=== PATIENT | male | born 1965 | race Caucasian/White ===

== ENCOUNTER 2022-06-03 21:01 | Emergency (ER) | payer BC, SELFPAY ==
[2022-06-03 21:11] VITALS: BP 120/80; PULSE 82; RESP 18; TEMP 36.7; O2SAT 95; BMI 30.2
--- NOTE | 2022-06-03 21:17 | XRR_ITS ---
PROCEDURE INFORMATION: Exam: XR Left Humerus Exam date and time: 06/03/2022 9:43 PM Age: 56 years old Clinical indication: Injury or trauma; Other: Hit by cleets; Blunt trauma (contusions or hematomas); Arm, upper; Left TECHNIQUE: Imaging protocol: Radiologic exam of the Left humerus. Views: 2 or more views. COMPARISON: No relevant prior studies available. FINDINGS: Bones/joints: There is no evidence for acute fracture or malalignment. Soft tissues: Normal. XR/[place] [id number] IMPRESSION: No acute findings.
[2022-06-03] MEDS: HYDROcodone-acetaminophen 5-325 mg Tablet 1 TAB PO (22:46)
[2022-06-03] MEDS: HYDROcodone-acetaminophen 5-325 mg Tablet 2 TAB PO (22:47)
--- NOTE | 2022-06-03 22:48 | PC.NURSE ---
2 tabs of hydrocodone bitartrate and acetaminophen tablet 5mg/325mg sent home with pt for pm until he is able to fill prescription tomorrow
[2022-06-03 23:14] VITALS: BP 118/79; PULSE 94; RESP 16; TEMP 36.8; O2SAT 98
--- NOTE | 2022-06-04 19:09 | W.ED.EXTPRO ---
HPI - Extremity Problem General: Chief complaint: Extremity Injury, Upper Stated complaint: Left Arm Pain Time Seen by Provider: 06/03/22 21:32 History of Present Illness: 56 yo male patient presents to ER with left arm pain. Pt was playing baseball and someone slid into him hitting his upper arm bicep area. Pt states he had immediate pain and swelling. Pt denies any numbness or tingling. Associated symptoms: Deny chest pain, fever(s) or rash Review of Systems Const: Denies: fever(s), chills, body aches, change in appetite, change in weight, fatigue, malaise or diaphoresis Eyes: Denies: change in vision, blurry vision, blind spots, photophobia, eye discomfort, eye discharge, eye redness, floaters or seeing flashes ENMT: Denies: throat pain, uvular edema, enlarged tonsils, odynophagia, hoarseness, mouth pain, swelling of lips/tongue, oral sores, bleeding gums, dental pain, dry mouth, ear or mastoid pain, ear discharge, change in hearing, tinnitus, disequilibrium, nasal discharge, nasal congestion, post nasal drip or sinus pain Card: Denies: chest pain, palpitations, irregular heart rhythm, edema, swelling of feet/ankles, lightheadedness, syncope, pre-syncope, dyspnea on exertion, orthopnea, leg pain with exertion or acrocyanosis Resp: Denies: dyspnea, productive cough, non-productive cough, wheezing, stridor, pain on inspiration, change in phlegm color, hemoptysis or chest congestion GI: Denies: abdominal pain, nausea, vomiting, hematemesis, dysphagia, diarrhea, constipation, GI cramping, change in bowel habits or rectal pain : Denies: flank pain, dysuria, urinary frequency, urinary urgency, urinary hesitancy or hematuria Musc: Denies: neck pain, back pain, joint pain, joint swelling, joint redness, joint warmth or deformity Skin/Breast: Denies: rash, pruritus, erythema, sores, new lesions, changes in skin color or dry skin Neuro: Denies: headache(s), numbness in extremities, weakness in extremities, sensory changes, lack of coordination, difficulty walking, frequent falls, dizziness, vertigo, confusion, behavioral changes, Slurred speech present, difficulty communicating thoughts or seizure-like activity Psych: Denies: anxiety, depression, suicidal ideation or homicidal ideation Endo: Denies: polyuria, polydipsia, tired all the time, cold intolerance, excessive sweating, flushing, hot flashes or heat intolerance August/Lymph: Denies: easy bruising, easy bleeding, petechiae, purpura, enlarged lymph nodes or tender lymph nodes All/Imm: Denies: urticaria, throat swelling, tongue swelling, facial swelling, acute wheezing or itchy eyes PFSH ED PFSH: Medical History No pertinent past medical history Surgical History No pertinent past surgical history Family History Father Family history of heart attack Brother Family history of heart attack Social History Smoking and tobacco status: current every day smoker (chew) smokeless tobacco Smokeless tobacco user: chewing tobacco Second hand smoke exposure: No Smoking risk assessment/counseling performed?: No Alcohol intake: never Desire information about alcohol rehabilitation?: No Counseling given: No Desire information about substance/drug rehabilitation?: No Counseling given: No Adopted: No Caregiver/support person: No Lives independently: Yes Household members: spouse Housing: House Marital status: Number of children: 2 service: No Current occupational status: employed Pets and animals: No History of recent travel: No Physical Exam Const: COMMON NORMALS: no acute distress, average body habitus, patient oriented x3, no limitations, healthy appearing, alert and well nourished HENMT: THROAT: no uvular edema Neck/C-Spine: COMMON NORMALS: full ROM, no lymphadenopathy, supple, no meningeal signs, no JVD, Thyroid normal and No carotid bruits THYROID: Thyroid normal Chest: COMMONS NORMALS: normal inspection of the chest and normal palpation of entire chest wall Resp: COMMON NORMALS: normal respiratory effort, No retractions, No use of accessory muscles and clear to auscultation bilaterally AUSCULTATION: clear to auscultation bilaterally Cardio: COMMON NORMALS: no JVD, regular rate and regular rhythm RATE: regular rate RHYTHM: regular rhythm : COMMON NORMALS: Yes no CVA tenderness BLADDER/KIDNEY EXAM: Yes no CVA tenderness Back/Pelvis: COMMON NORMALS: no CVA tenderness, thoracic and lumbar spine normal to inspection, no thoracic nor lumbar tenderness and thoraco-lumbar ROM normal Extremity: NARRATIVE EXTREMITY EXAM: Pt has swelling to left bicep area as well as tenderness. Neuro: COMMON NORMALS: patient oriented x3 SENSORIUM/ORIENTATION: Yes alert MENINGEAL SIGNS: Yes no meningeal signs Psych: COMMON NORMALS: mental status grossly normal, Normal thought process present, cooperative, normal affect, speech normal, activity/motor behavior normal, denies hallucinations, denies homicidal ideation and denies suicidal ideation SPEECH: Yes normal speech THOUGHT PROCESS: Normal thought process present Skin: COMMON NORMALS: no rashes or lesions noted, no wounds, turgor normal, no jaundice, no petechiae and no mottling GENERAL SKIN EXAM: no rashes or lesions noted and turgor normal Course Vital Signs: Vital signs: Vital Signs Temperature 98.2 F 06/03/22 23:14 Pulse Rate 94 06/03/22 23:14 Respiratory Rate 16 06/03/22 23:14 Blood Pressure 118/79 06/03/22 23:14 Pulse Oximetry 98 06/03/22 23:14 MDM - Extremity (Nontraumatic) Medical Decision Making Patient is well appearing non toxic and in no acute distress. Pt is NVI distally. 22 yo female patient presents to ER with pain to chest above left breast. Pt states her toddler kicked her here and anytime she moves or touches it hurts. Pt denies SOB. Pt denies any other injury or trauma. Pt has a dennis sign to left bicep. Xray does not reveal any acute fracture or dislocation. I will treat patients pain and have him follow up with ORtho. I discussed home care and return precautions. Pt is medically stable and cleared for discharge Lab Data Radiology Impressions Humerus X-Ray 06/03/22 21:17 IMPRESSION: No acute findings. Discharge Plan Discharge Patient Disposition: Home Clinical Impression: Biceps tendon tear Condition: Stable Prescriptions: No Action omeprazole 20 mg capsule,delayed release(DR/EC) 20 mg PO DAILY 0RF azithromycin 250 mg tablet See Rx Instructions PO .COMPLEX 5 Days Qty: 6 0RF Rx Instructions: take 500 mg today (day 1), then 250 mg for 4 days (days 2-5) PO prednisone 20 mg tablet 40 mg PO DAILY 5 Days Qty: 10 0RF albuterol sulfate [Ventolin HFA] 90 mcg/actuation HFA aerosol inhaler 2 puff inhalation QID PRN (Reason: shortness of breath or wheezing) Qty: 6.7 0RF Discharge Orders: Discharge ED (Routine); Ordered 06/03/22 Ordered By: Priscilla Nguyễn Referrals: Morris Garza MD [Primary Care Provider] - Discharge Diet: Advance as tolerated Discharge Activity: Limit activity as instructed Patient Instructions: Opioid Safety Activity Restrictions/Additional Instructions: Please do not drive or operate heavy machinery while taking norco Rest Ice Take 600-800 mg Ibuprofen 3 x per day with food Follow up with Ortho Coding Level of Care Code ED 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
== END 2022-06-03 23:15 | disposition home or self-care (01) ==
PROVIDERS: Emergency Provider Registered Nurse; PCP Family Medicine
DX: S46.212A Strain of muscle, fascia and tendon of other parts of biceps, left arm, initial encounter (principal); W50.0XXA Accidental hit or strike by another person, initial encounter; Y93.64 Activity, baseball; F17.220 Nicotine dependence, chewing tobacco, uncomplicated
CPT/HCPCS: 73060; 99283

== ENCOUNTER 2022-07-14 05:44 | Day surgery (SDC) | payer BC, SELFPAY ==
[2022-07-14] VITALS (9 sets, daily range): BP systolic 105–129; BP diastolic 65–93; PULSE 56–73; RESP 16–20; TEMP 36.1–36.6; O2SAT 95–97
--- NOTE | 2022-07-14 | XR_ITS ---
WS: [id number] Exam: XR elbow LT 2V [id number] Date/Time of Exam: 07/14/2022 12:00 AM Reason For Exam: bicep repair AP intraoperative C-arm images of the left elbow are submitted for evaluation. A small cortical plate is noted in the proximal radius near the tuberosity. The joint compartment is well maintained as visualized. XR/XR elbow LT 2V [id number] IMPRESSION: 1. Postoperative changes of the proximal radius as indicated above.
--- NOTE | 2022-07-14 | SCC_ITS ---
Procedure done: Open repair left distal biceps 11.5 seconds of fluoroscopic guidance, for a cumulative dose of 0.6 mGy, was provided to Dr. Stanley by the radiology department. C-arm images of the LEFT elbow were saved for the patient's permanent record. [facility] CENTERAnupam
[2022-07-14] MEDS: sodium chloride 0.9% 1,000 ML 30 ML IV (06:20)
--- NOTE | 2022-07-14 06:29 | ANES.PREANE2 ---
Pre-Anesthetic Assessment Height/Weight: Height 1.75 m Weight 92.986 kg Temp Pulse Resp BP Pulse Ox O2 Del Method 97.9 F 57 L 18 117/91 95 07/14/22 06:00 07/14/22 06:00 07/14/22 06:00 07/14/22 06:00 07/14/22 06:00 07/14/22 06:10 Preop Diagnosis: Left distal biceps rupture Operation Date: 07/14/22 07:00 Proposed Procedures p left distal biceps tendon repair/ 22614,S46.219A(Left) - Lon Stanley MD Familial anesthetic complications: None Was Beta Jaden taken within 24 hours: N/A Was Clonidine taken within 24 hours: N/A Last intake: Intake Last Liquid Date 07/13/22 Last Liquid Time 22:30 Last Solid Date 07/13/22 Last Solid Time 20:00 Social Tobacco (Chewing tobacco, none today ) and No alcohol Exam alert, oriented x 3, clear to auscultation bilaterally and regular rate & rhythm Airway Submandibular: within normal limits Cervical ROM: within normal limits Mallampati: Class I Dentition: full History/ROS No significant complaints Pulmonary Snoring, daytime fatigue, witnessed apnea, no treatment for HTN, BMI < 35, Age > 50, large neck, male - high risk for BARRY CV/HEM None reported None reported Hepatic None reported GI Gastroesophageal Reflux Disease (Poorly controlled ) Metabolic None reported Musc/skel Biceps tendon repair Neuropsych None reported Anesthetic Plan ASA status: 2 Anesthesia: Anesthesia Evaluation and General Other: We discussed risk and benefits of general anesthesia including PONV, sore throat (sometimes severe), corneal abrasion, positioning and peripheral nerve injuries, life threatening allergic reaction, post operative ICU admission requiring prolonged intubation, stroke, heart attack, , and rare incidences of recall. Patient consents to proceed with general anesthesia. Plan pre op famotidine and metoclopramide Risk of > 500 ml blood loss (7ml/kg in children): No Medications/Allergies Home Medications Medication Instructions Recorded Confirmed Last Taken Type No Known Home Medications 06/22/22 Unknown History Allergies Allergy/AdvReac Type Severity Reaction Status Date / Time codeine Allergy ADR-Nausea Verified 06/22/22 13:00 Current Medications Generic Name Dose Route Start Last Admin Trade Name Freq PRN Reason Stop Dose Admin Sodium Chloride 1,000 mls @ 30 mls/hr 07/14/22 06:00 07/14/22 06:20 Sodium Chloride 0.9% IV 07/15/22 05:59 30 mls/hr .Q24H [place] Administration PFSH Anesthesia Medical History No pertinent past medical history Surgical History No pertinent past surgical history Family History Father Family history of heart attack Brother Family history of heart attack Social History Smoking and tobacco status: current every day smoker (chew) smokeless tobacco Smokeless tobacco user: chewing tobacco Second hand smoke exposure: No Smoking risk assessment/counseling performed?: No Alcohol intake: never Desire information about alcohol rehabilitation?: No Counseling given: No Desire information about substance/drug rehabilitation?: No Counseling given: No Adopted: No Caregiver/support person: No Lives independently: Yes Household members: spouse Housing: House Marital status: Number of children: 2 service: No Current occupational status: employed Pets and animals: No History of recent travel: No Data Anesthesia Cardiac Studies: No Data to Display
[2022-07-14] MEDS: metoclopramide 5 mg/mL SDV 2 mL 10 MG IVP (06:53)
[2022-07-14] MEDS: famotidine 20 mg/2 mL INJ IVP (06:54)
--- NOTE | 2022-07-14 07:08 | W.PM.OPSUD ---
Surgery/Procedure H&P Update DATE OF PROCEDURE: July 14, 2022 DATE H&P PERFORMED: 06/22/22 H&P UPDATE INFORMATION: I have reviewed H&P completed within last 30 days and No changes to prior documentation PREOP DIAGNOSIS: Left distal biceps rupture PLANNED PROCEDURE: Operation Date: 07/14/22 07:00 Proposed Procedures p left distal biceps tendon repair/ [id number],S46.219A(Left) - Lon Stanley MD
[2022-07-14] MEDS: ceFAZolin 2,000 MG in sodium chloride 0.9% (plus) 50 ML 100 MG IV (07:10)
--- NOTE | 2022-07-14 08:40 | PM.OP ---
Operative Report Date of procedure: July 14, 2022 Pre-op diagnosis: Preop Diagnosis Left distal biceps rupture Procedure done: Open repair left distal biceps Implants: [employer] Endobutton Pathology: none sent Surgeon: Lon Stanley Anesthesia: General Estimated blood loss (mL): 2 Findings: The patient had a complete rupture of his distal biceps tendon with retraction of the tendon to the distal third of the arm. The tendon was scarred upon itself and a ball and, once mobilized approximately 1 cm of degenerative tissue was noted Condition: stable Disposition: PACU Procedure: The patient was taken to the operating room and given a general. They were prepped and draped in the supine position with a tourniquet on the involved arm. Timeout was performed. As the biceps was retracted significantly proximally a tourniquet was not applied. A transverse incision approximately 4 cm long was made in line with the distal flexion crease section was carried through the fascia and a superficial veins retracted. The distal biceps tendon was palpable and exposed. A Suri clamp could be passed up proximally in the arm and the bulbous tendon grasp. Scar tissue about the end of the tendon was freed revealing the tendon coiled back upon itself. Utilizing a scalpel blade a distal 1 cm very enlarged degenerative tendon was excised. Ultratape and Ultrabraid suture was passed in a locking Krak?w fashion beginning proximally extending distally out the tendon, around the Endobutton and back through the tendon distal proximal. The knot was secured proximally. Approximately 3 mm were left between the ends of the tendon and the Endobutton. The Endobutton was then passed the tendon through a sizing tube in the tendon measured approximately 6 mm. Blunt dissection was accomplished down to the radial tuberosity. A guidepin was driven from anterior is slightly proximal to distal slightly posterior with the arm in maximal supination. Fluoroscopy was used to verify position of pin. A Endobutton reamer was passed through both cortices and a 6 mm reamer through the anterior cortex. Endobutton sutures were then passed through the eyelet of the guide pin. In the guide pin passed through the dorsal arm. The sutures were used to shuttle the Endobutton which was felt to engage on the far cortex of the radius. Dropper fluoroscopy showed satisfactory position of the button. Deep tissues were closed with 3-0 Vicryl and the skin with skin ezequiel. Sterile dressings consisting of Xeroflo, 4 x 4's, and Ayo wrap were applied. Patient was placed in a hinged elbow brace locked in 60? of flexion.
[2022-07-14] MEDS: fentaNYL 50 mcg/mL INJ 2mL IVP (08:54)
[2022-07-14] MEDS: oxyCODONE-APAP 5-325 mg Tablet 1 TAB PO (09:38)
[2022-07-14] MEDS: ondansetron 2 mg/ML SDV 2 mL 4 MG IVP (09:48)
--- NOTE | 2022-07-14 14:24 | ANE.PACU2 ---
Inpatient post-anesthesia follow up: Airway intact: Yes Vital signs: Temperature 97.0 F Pulse Rate 56 Respiratory Rate 17 Blood Pressure 112/65 Pulse Oximetry 96 Oxygen Delivery Me thod Room Air Oxygen Flow Rate Fraction of Inspir ed Oxygen Hydration adequate: Yes Nausea and vomiting: No Pain level: 4 Mental status: Baseline
== END 2022-07-14 10:12 | disposition home or self-care (01) ==
PROVIDERS: PCP Family Medicine; Visit Provider Orthopaedic Surgery
PROC: (CPT 23430; principal; 2022-07-14 07:00)
DX: S46.212A Strain of muscle, fascia and tendon of other parts of biceps, left arm, initial encounter (principal); K21.9 Gastro-esophageal reflux disease without esophagitis; F17.220 Nicotine dependence, chewing tobacco, uncomplicated; Z88.5 Allergy status to narcotic agent; W50.0XXA Accidental hit or strike by another person, initial encounter; Y93.64 Activity, baseball
CPT/HCPCS: 24342; 73070; 76000; J1100; J1580; J1885; J2405; J2704; J2710; J2765; J3010; J3490; J7030

== ENCOUNTER 2022-07-19 15:28 | Outpatient (CLI) | payer BC, SELFPAY | END 2022-07-19 15:29 | disposition home or self-care (01) | LOC: SPT 15:28 | PROVIDERS: PCP Family Medicine; Visit Provider Nurse Practitioner Family | DX: S46.219A Strain of muscle, fascia and tendon of other parts of biceps, unspecified arm, initial encounter (principal); S46.212A Strain of muscle, fascia and tendon of other parts of biceps, left arm, initial encounter; X58.XXXA Exposure to other specified factors, initial encounter | CPT/HCPCS: 97760; L3761 ==

== ENCOUNTER 2022-07-28 06:00 | Outpatient (RCR) | payer BC, SELFPAY | END 2022-08-12 23:59 | disposition home or self-care (01) | LOC: SPT 06:00 | PROVIDERS: PCP Family Medicine; Visit Provider Nurse Practitioner Family | DX: S46.112D Strain of muscle, fascia and tendon of long head of biceps, left arm, subsequent encounter (principal); X58.XXXD Exposure to other specified factors, subsequent encounter; M25.622 Stiffness of left elbow, not elsewhere classified; Z98.890 Other specified postprocedural states | CPT/HCPCS: 97110; 97161 ==

== ENCOUNTER 2022-08-13 06:00 | Outpatient (RCR) | payer BC, SELFPAY | END 2022-09-12 23:59 | disposition home or self-care (01) | LOC: SPT 06:00 | PROVIDERS: PCP Family Medicine; Visit Provider Nurse Practitioner Family | DX: Z47.89 Encounter for other orthopedic aftercare (principal) | CPT/HCPCS: 97110 ==

== ENCOUNTER 2022-09-13 06:00 | Outpatient (RCR) | payer BC, SELFPAY | END 2022-10-12 23:59 | disposition home or self-care (01) | LOC: SPT 06:00 | PROVIDERS: PCP Family Medicine; Visit Provider Nurse Practitioner Family | DX: Z98.890 Other specified postprocedural states (principal); S46.112D Strain of muscle, fascia and tendon of long head of biceps, left arm, subsequent encounter; X58.XXXD Exposure to other specified factors, subsequent encounter; M25.622 Stiffness of left elbow, not elsewhere classified | CPT/HCPCS: 97110 ==

== ENCOUNTER 2022-10-13 06:00 | Outpatient (RCR) | payer BC, SELFPAY | END 2022-11-12 23:59 | disposition home or self-care (01) | LOC: SPT 06:00 | PROVIDERS: PCP Family Medicine; Visit Provider Nurse Practitioner Family | DX: Z98.890 Other specified postprocedural states (principal); S46.112D Strain of muscle, fascia and tendon of long head of biceps, left arm, subsequent encounter; X58.XXXD Exposure to other specified factors, subsequent encounter; M25.622 Stiffness of left elbow, not elsewhere classified | CPT/HCPCS: 97110 ==

== ENCOUNTER → 2024-07-31 08:26 | Outpatient (BNVA) | payer BC, SELFPAY | PROVIDERS: PCP Family Medicine; Visit Provider Nurse Practitioner Family | DX: R30.0 Dysuria (principal) | CPT/HCPCS: 81000 ==

== ENCOUNTER → 2024-12-19 10:11 | Outpatient (BNVA) | payer BC, SELFPAY | PROVIDERS: PCP Family Medicine; Visit Provider Family Medicine | DX: Z00.00 Encounter for general adult medical examination without abnormal findings (principal); G47.00 Insomnia, unspecified | CPT/HCPCS: 80053; 80061 ==